=== PATIENT | male | born 1975 | race Caucasian/White ===

== ENCOUNTER 2016-05-05 16:34 | Emergency (ER) | payer SELFPAY ==
[~2016-05-05] VITALS: Ht 193 cm; Wt 83.6 kg
[~2016-05-05 16:34] MED LIST: BUSP-8 PO; SERT100T PO
[2016-05-05 16:42] VITALS: BP 122/81; PULSE 102; TEMP 37.5; O2SAT 97; Ht 193 cm; Wt 83.6 kg
[2016-05-05] MEDS ORDERED: XYLOCAINE 1%/SOD BICARB 20 ML VIAL INFIL ONE (17:30)
--- NOTE | 2016-05-05 17:35 | EMERGENCY ROOM VISIT NOTE ---
ED Visit Note First contact with patient: 17:15 CHIEF COMPLAINT: Finger laceration HISTORY OF PRESENT ILLNESS: This 40-year-old male patient presents to the emergency department ambulatory after cutting the right third finger on a knife just prior to arrival. He reports that he slipped and cut the finger on a knife that was open in his drawer. The bleeding has stopped. Denies weakness or numbness of the finger. The patient has full range of motion of the fingers. The patient rates the pain as dull and 7/10. The patient denies any other injuries. The patient's tetanus shot is up to date. REVIEW OF SYSTEMS: A 6 system review of systems was completed with positives and pertinent negatives listed in the HPI. ALLERGIES: No known drug allergies MEDICATIONS: Buspirone, Zoloft PMH: No significant past medical history. SOCIAL HISTORY: The patient lives locally with family. He is a smoker. PHYSICAL EXAM: Vital Signs: Reviewed Nurse's notes, vital signs stable. GENERAL : This is a 40-year-old male, in no acute distress, well developed, well nourished. SKIN: There is a 1 cm long laceration on the dorsal aspect of the right third finger. The edges gape apart with traction. There is no foreign material in the wound and it looks clean. There is minimal active bleeding. No deep structures such as tendons, bones, or significant blood vessels are seen in the base of the wound. Extension and flexion of the finger is full and strong. Full range of motion of the wrist and other fingers. Capillary refill less than 2 seconds. Normal sensation to light and sharp touch. EMERGENCY DEPARTMENT COURSE: I examined the patient. Verbal consent was obtained to perform the procedure. Using sterile technique the wound was cleansed with Betadine. 2 ml of 1% buffered lidocaine was used to anesthetize the laceration. The area was sterilely draped. Once the patient was anesthetized, the wound was copiously irrigated under pressure with sterile saline. The wound was explored and there were no deep structures injured. The laceration was repaired using 4 simple interrupted 5-0 nylon sutures. The patient tolerated the procedure well. Hemostasis was achieved. The area was cleaned with sterile saline and dressed with bacitracin ointment and bandage. The patient was discharged home in good condition. DIAGNOSIS: Finger laceration Current/Historical Medications Scheduled Ibuprofen Tab (Motrin), 800 MG PO DAILY Allergies Coded Allergies: No Known Allergies (Unverified , 06/23/15) Vital Signs Date Time Temp Pulse Resp B/P Pulse Ox O2 Delivery O2 Flow Rate FiO2 05/05/16 16:42 37.5 102 19 122/81 97 Room Air Departure Information Impression Primary Impression: Finger laceration Dispostion Home / Self-Care Condition GOOD Referrals Rhonda Leija PA-C (PCP) Mateus Montague MD Patient Instructions My [facility] Additional Instructions You have received 4 sutures on your finger. These sutures are NOT dissolvable and WILL need to be removed by a health care provider in 10-12 days. You can return to the Emergency Department or contact your Primary Care Provider to have the sutures removed. Proper wound care is essential for adequate wound healing and infection prevention. You can shower and clean the wound with soap and water. Do not scour over the wound, pat dry with a towel. Do not submerse the wound (i.e. bathe or dish wash) until the sutures have been removed. You can use an antibiotic ointment with a dressing over the wound for the next 3-4 days. After this time you may leave the wound dry and open to the air. If crust develops over the wound you can use a Q-tip to apply a 1:1 peroxide:water solution to clean the wound. Look for signs of infection of the wound including: increased pain, swelling, foul discharge, streaking, or increased temperature. If any of these are noticed you should return to the Emergency Department for further assessment and treatment. As with any laceration you may have received nerve damage to the surrounding tissues. This damage may or may not be permanent. You should keep the area covered with sunscreen for the first 6 months to 1 year when at risk for exposure to help minimize scarring. You can also use scar reducing creams or Vitamin E oil to help minimize scarring. For pain control, you can use the following [id number] medicines (if >12 yo): - Regular strength (325mg/tab) Tylenol (acetaminophen) 2 tabs every 4-6 hours as needed. Do not exceed 12 tablets in a 24 hour period. Avoid taking more than 4 grams (4000 mg) of Tylenol per day. This includes any other sources of acetaminophen you may take on a regular basis. - Regular strength (200 mg/tab) Advil (ibuprofen) 1-2 tabs every 4-6 hours as needed. Do not exceed a dose of 3200 mg per day. Follow-up with orthopedics if you have any persistent numbness or weakness of the finger after the sutures are removed. Return to the emergency department if your symptoms worsen despite treatment course outlined above. Problem Qualifiers Primary Impression: Finger laceration Encounter type: initial encounter Qualified Codes: S61.219A - Laceration without foreign body of unspecified finger without damage to nail, initial encounter
[2016-05-05] MEDS ORDERED: IBUP-1451 PO (17:37)
== END 2016-05-05 18:15 | disposition home or self-care (01) ==
LOC: C.EDB 16:36 → C.EDD 18:15
DX: S61.212A Laceration without foreign body of right middle finger without damage to nail, initial encounter (principal); W26.0XXA Contact with knife, initial encounter; Y92.010 Kitchen of single-family (private) house as the place of occurrence of the external cause; F17.210 Nicotine dependence, cigarettes, uncomplicated; Z79.899 Other long term (current) drug therapy

== ENCOUNTER 2016-12-06 12:44 | Emergency (ER) | payer OTHER ==
[~2016-12-06] VITALS: Ht 193 cm; Wt 99.1 kg
[~2016-12-06 12:44] MED LIST changes: -BUSP-8 PO; +IBUP-1451 PO; -SERT100T PO
[2016-12-06 12:45] VITALS: TEMP 36.9; Ht 193 cm; Wt 99.1 kg
[2016-12-06] MEDS ORDERED: SODIUM CHLORIDE 0.9% 1000ML 1,000 ML IV STA (12:55)
[2016-12-06] MEDS ORDERED: ALBUT/IPRATROP 3MG/0.5MG NEB 3 ML VIAL INH STA (12:55)
--- NOTE | 2016-12-06 13:04 | EMERGENCY ROOM VISIT NOTE ---
History Report prepared by Kianibalondra: Becka Sharp Under the Supervision of: Dr. Carrington Lee D.O. First contact with patient: 12:49 Chief Complaint: FLU LIKE SX Stated Complaint: SICK - FEVER - COUGHING UP MUCUS History of Present Illness The patient is a 41 year old male who presents to the Emergency Room with complaints of intermittent flu-like symptoms for the past few weeks. He complains of intermittent fevers, diaphoresis, a cough, "sharp" chest pain, shortness of breath and generalized body aches. His cough is productive with dark colored, "almost black mucous". The patient is a current 1/2 pack a day smoker. 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 The patient admits he was incarcerated for 5 days 2 years ago in a [facility] residential but denies any known tuberculosis exposures. He denies any abdominal pain , vomiting or diarrhea. He notes he is a recovering alcoholic and he last had a drink approximately 1 year ago. The patient states his Mother was recently diagnosed with lymphoma and he is concerned as he has noticed some swelling under his left arm. He denies any history of IV drug use. Source of History: patient Onset: past few weeks [employer]KE WORK[employer] Position: other (global) Timing: intermittent Associated Symptoms: + fevers, + diaphoresis, + cough, + chest pain, + SOB, + fatigue, No vomiting, No abdominal pain, No diarrhea Review of Systems See HPI for pertinent positives & negatives. A total of 10 systems reviewed and were otherwise negative. Past Medical & Surgical Medical Problems: (1) Depression Surgical Problems: (1) S/P ACL repair Social History Problems: (1) Smoker Family History Cancer Heart disease Lung disease Social History Smoking Status: Current Every Day Smoker Alcohol Use: other (history of ETOH abuse) Drug Use: none Marital Status: Housing Status: lives with family Occupation Status: employed Current/Historical Medications Scheduled Cephalexin Monohydrate (Keflex), 500 MG PO QID Ibuprofen (Advil), 400 MG PO DAILY Mirtazapine (Mirtazapine), 1 TAB PO HS Scheduled PRN Tramadol (Ultram), 50 MG PO DAILY PRN for Pain Allergies Coded Allergies: No Known Allergies (Unverified , 12/06/16) Physical Exam Vital Signs Date Time Temp Pulse Resp B/P (MAP) Pulse Ox O2 Delivery O2 Flow Rate FiO2 9/23/17 14:07 84 20 125/90 99 Room Air 12/06/16 12:45 36.9 103 20 132/78 98 Room Air Physical Exam GENERAL: Patient is awake, alert, in no acute distress, patient is resting comfortably and showing no signs of anxiety EYES: The conjunctivae are clear. The pupils are round and reactive. EARS, NOSE, MOUTH AND THROAT: The nose is without any evidence of any deformity. TM's clear bilaterally, Mucous membranes are dry, tongue is midline NECK: The neck is nontender and supple. RESPIRATORY: Lung sounds are diminished throughout with expiratory wheezing in all [place]. No tachypnea or conversational dyspnea CARDIOVASCULAR: Regular rate and rhythm noted there no murmurs rubs or gallops normal S1 normal S2 GASTROINTESTINAL: The abdomen is soft. Bowel sounds are present in all quadrants. Abdomen is nontender PELVIS: The Pelvis is stable. No tenderness to palpation is noted. BACK: No midline tenderness or or step-off noted range of motion in flexion extension as well as rotation no signs of muscle spasm noted MUSCULOSKELETAL/EXTREMITIES: There is no evidence of gross deformity full range of motion is noted in the hips and shoulders SKIN: Tender to palpation in the left axilla, questionable axillary adenopathy is appreciated. There is no obvious evidence of any rash. There are no petechiae , pallor or cyanosis noted. NEUROLOGIC: Patient is awake alert and oriented x3 Medical Decision & Procedures ER Provider Diagnostic Interpretation: Radiology results as stated below per my review and radiologist interpretation: CHEST 2 VIEWS ROUTINE HISTORY: EVALUATE RESPIRATORY DISTRESS.DYSPNEA COMPARISON: Chest 06/23/2015. FINDINGS: Mild chronic mucosal thickening, unchanged. No new focal lung consolidations to suggest pneumonia. No pleural effusions. No pneumothorax. The heart is normal in size. IMPRESSION: Stable mild chronic interstitial thickening. No acute process within the chest. Electronically signed by: Ramiro Dawson M.D. 12/06/2016 1:46 PM Laboratory Results 12/06/16 13:05 Red Blood Count 4.64, Mean Corpuscular Volume 90.7, Mean Corpuscular Hemoglobin 31.3, Mean Corpuscular Hemoglobin Concent 34.4, Mean Platelet Volume 9.9, Neutrophils (%) (Auto) 51.5, Lymphocytes (%) (Auto) 33.7, Monocytes (%) (Auto) 8.1, Eosinophils (%) (Auto) 5.8, Basophils (%) (Auto) 0.6, Neutrophils # (Auto) 3.74, Lymphocytes # (Auto) 2.44, Monocytes # (Auto) 0.59, Eosinophils # (Auto) 0.42, Basophils # (Auto) 0.04 12/06/16 13:05 Test 12/06/16 13:05 12/06/16 13:40 White Blood Count 7.25 K/uL (4.8-10.8) Red Blood Count 4.64 M/uL (4.7-6.1) Hemoglobin 14.5 g/dL (14.0-18.0) Hematocrit 42.1 % (42-52) Mean Corpuscular Volume 90.7 fL (80-100) Mean Corpuscular Hemoglobin 31.3 pg (25-34) Mean Corpuscular Hemoglobin Concent 34.4 g/dl (32-36) Platelet Count 230 K/uL (130-400) Mean Platelet Volume 9.9 fL (7.4-10.4) Neutrophils (%) (Auto) 51.5 % Lymphocytes (%) (Auto) 33.7 % Monocytes (%) (Auto) 8.1 % Eosinophils (%) (Auto) 5.8 % Basophils (%) (Auto) 0.6 % Neutrophils # (Auto) 3.74 K/uL (1.4-6.5) Lymphocytes # (Auto) 2.44 K/uL (1.2-3.4) Monocytes # (Auto) 0.59 K/uL (0.11-0.59) Eosinophils # (Auto) 0.42 K/uL (0-0.5) Basophils # (Auto) 0.04 K/uL (0-0.2) RDW Standard Deviation 45.4 fL (36.4-46.3) RDW Coefficient of Variation 13.8 % (11.5-14.5) Immature Granulocyte % (Auto) 0.3 % Immature Granulocyte # (Auto) 0.02 K/uL (0.00-0.02) Erythrocyte Sedimentation Rate 4 mm/hr (0-14) Anion Gap 6.0 mmol/L (3-11) Est Creatinine Clear Calc Drug Dose 129.9 ml/min Estimated GFR () 120.8 Estimated GFR (Non- 104.2 BUN/Creatinine Ratio 15.3 (10-20) Calcium Level 8.7 mg/dl (8.5-10.1) Total Bilirubin 0.3 mg/dl (0.2-1) Aspartate Amino Transf (AST/SGOT) 17 U/L (15-37) Alanine Aminotransferase (ALT/SGPT) 22 U/L (12-78) Alkaline Phosphatase 68 U/L (45-117) Troponin I < 0.015 ng/ml (0-0.045) C-Reactive Protein 1.31 mg/dl (0-0.29) Total Protein 6.8 gm/dl (6.4-8.2) Albumin 3.8 gm/dl (3.4-5.0) Globulin 3.0 gm/dl (2.5-4.0) Albumin/Globulin Ratio 1.3 (0.9-2) Urine Color DK YELLOW Urine Appearance CLEAR (CLEAR) Urine pH 5.0 (4.5-7.5) Urine Specific [place] 1.024 (1.000-1.030) Urine Protein NEG (NEG) Urine Glucose (UA) NEG (NEG) Urine Ketones NEG (NEG) Urine Occult Blood NEG (NEG) Urine Nitrite NEG (NEG) Urine Bilirubin NEG (NEG) Urine Urobilinogen NEG (NEG) Urine Leukocyte Esterase NEG (NEG) Laboratory results per my review. Medications Administered Medications (Trade) Dose Ordered Sig/Carmen Route Start Time Stop Time Status Last Admin Dose Admin Sodium Chloride 1,000 ml @ 999 mls/hr Q1H1M STAT IV 12/06/16 12:55 12/06/16 13:55 DC 12/06/16 13:06 999 MLS/HR Albuterol/ Ipratropium (Duoneb) 3 ml NOW STAT INH 12/06/16 12:55 12/06/16 12:56 DC 12/06/16 13:06 3 ML ECG Indication: chest pain Rate (beats per minute): 79 Rhythm: normal sinus Findings: no ectopy, other (No acute ST segments) Change: no significant change (No change from 06/23/2015) ED Course 1251: The patient was evaluated in room B6. A complete history and physical examination were performed. 1255: DuoNeb 3 ml INH, NSS 1000 ml @ 999 mls/hr IV. 1418: I reevaluated the patient. He is feeling well and resting comfortably. I discussed his results and discharge instructions and he verbalized complete understanding and agreement. Medical Decision Prior records/ancillary studies reviewed. Triage Nursing notes reviewed. The patient's history was concerning for respiratory difficulties. Differential diagnosis: Etiologies such as infections, reactive airway disease, pneumonia, pneumothorax , COPD, CHF, cardiac ischemia, pulmonary embolism, musculoskeletal, gastrointestinal, as well as others were entertained. The patient is a 41-year-old male who presented to the emergency department for evaluation of cough as well as swelling in his left axilla. The patient has a family member who has lymphoma and was concerned he may have some sort of blood borne problem. The patient did not have a fever in the emergency department. His chest x-ray was not consistent with pneumonia. On physical exam did have some wheezing but he does smoke. He also had some palpable fullness in his left axilla which could be consistent with adenopathy. I recommended a course of antibiotics for this. I discussed the patient's laboratory radiographic studies with him. He was also given follow-up information for the on-call general surgeon to discuss the possibility that this may require biopsy in someway to determine the cause. He was also encouraged to follow-up with his primary care physician soon as possible return to emergency department immediately if symptoms worsen or the need arises. I also stressed stop smoking. Medication Reconcilliation Current Medication List: was personally reviewed by me Blood Pressure Screening Patient's blood pressure: Normal blood pressure Blood pressure disposition: Did not require urgent referral Impression Primary Impression: Axillary adenopathy Additional Impressions: Weakness Cough Scribe Attestation The scribe's documentation has been prepared under my direction and personally reviewed by me in its entirety. I confirm that the note above accurately reflects all work, treatment, procedures, and medical decision making performed by me. Departure Information Dispostion Home / Self-Care Prescriptions Cephalexin Monohydrate (KEFLEX) 500 Mg Cap 500 MG PO QID, #40 CAP Prov: Carrington Lee, DO 12/06/16 Referrals No Doctor, Assigned (PCP) Patient Instructions ED Smoking Cessation, Lymphadenopathy, My [facility] Additional Instructions Continue all medications as prescribed. Continue using Motrin and Tylenol for mild pain. Follow-up with your primary care physician phlebotomist lab assistant as possible. Call the general surgeon to discuss the possibility that you may need the lymph nodes in your left arm removed or biopsied if it does not respond and treatment. Problem Qualifiers
[2016-12-06] MEDS ORDERED: TRAM-10 PO (13:11)
[2016-12-06] MEDS ORDERED: IBUP-1050 PO (13:11)
[2016-12-06] MEDS ORDERED: MIRT45TA3 PO (13:11)
[2016-12-06 13:16] LABS: BASO % 0.6 %; BASO ABS # 0.04 K/uL (0-0.2); COMPLETE YES; EOS % 5.8 %; HEMATOCRIT 42.1 % (42-52); IG% 0.3 %; LYMPH % 33.7 %; LYMPH ABS # 2.44 K/uL (1.2-3.4); MEAN CELL VOLUME 90.7 fL (80-100); MEAN CORPUSCULAR HEMOGLOBIN 31.3 pg (25-34); MEAN CORPUSCULAR HGB CONC 34.4 g/dl (32-36); MEAN PLATELET VOLUME 9.9 fL (7.4-10.4); MONO % 8.1 %; NEUT % 51.5 %; PLATELET COUNT 230 K/uL (130-400); RED BLOOD COUNT 4.64 M/uL (4.7-6.1); WHITE BLOOD COUNT 7.25 K/uL (4.8-10.8)
[2016-12-06 13:36] LABS: ALT/SGPT 22 U/L (12-78); BLOOD UREA NITROGEN 14 mg/dl (7-18); BUN/CREATININE RATIO 15.3 (10-20); C-REACTIVE PROTEIN 1.31 mg/dl (0-0.29); CALCIUM 8.7 mg/dl (8.5-10.1); CARBON DIOXIDE 26 mmol/L (21-32); CHLORIDE 108 mmol/L (98-107); GLUCOSE 72 mg/dl (70-99); POTASSIUM 3.7 mmol/L (3.5-5.1); SODIUM 140 mmol/L (136-145)
[2016-12-06 13:41] LABS: ALB/GLOB RATIO 1.3 (0.9-2); ALKALINE PHOSPHATASE 68 U/L (45-117); AST/SGOT 17 U/L (15-37)
--- NOTE | 2016-12-06 13:48 | DIAGNOSTIC IMAGING REPORT ---
CHEST 2 VIEWS ROUTINE HISTORY: EVALUATE RESPIRATORY DISTRESS.DYSPNEA COMPARISON: Chest 06/23/2015. FINDINGS: Mild chronic mucosal thickening, unchanged. No new focal lung consolidations to suggest pneumonia. No pleural effusions. No pneumothorax. The heart is normal in size. IMPRESSION: Stable mild chronic interstitial thickening. No acute process within the chest. Electronically signed by: Ramiro Dawson M.D. 12/06/2016 1:46 PM Dictated Date/Time: 12/06/2016 1:45 PM
[2016-12-06 14:02] LABS: MANUAL MICROSCOPIC REQUIRED? NO; REVIEW REQ? NO; URINE APPEARANCE CLEAR (CLEAR); URINE BILIRUBIN NEG (NEG); URINE COLOR DK YELLOW; URINE NITRITE NEG (NEG); URINE SPECIFIC GRAVITY 1.024 (1.000-1.030); UROBILINOGEN NEG (NEG)
[2016-12-06 14:07] VITALS: BP 125/90; PULSE 84; O2SAT 99
[2016-12-06] MEDS ORDERED: CEPH500C2 PO (14:15)
== END 2016-12-06 14:29 | disposition home or self-care (01) ==
LOC: C.EDB 12:45
DX: R59.9 Enlarged lymph nodes, unspecified (principal); R05 Cough; R53.1 Weakness; F32.9 Major depressive disorder, single episode, unspecified; F17.200 Nicotine dependence, unspecified, uncomplicated; Z98.890 Other specified postprocedural states; Z80.9 Family history of malignant neoplasm, unspecified; Z82.49 Family history of ischemic heart disease and other diseases of the circulatory system

== ENCOUNTER → 2017-06-26 | Outpatient (CLI) | payer OTHER ==
[~2017-06-26] MED LIST changes: +IBUP-1050 PO; -IBUP-1451 PO; +MIRT45TA3 PO; +TRAM-10 PO
[2017-06-26 12:19] LABS: BASO % 1.2 %; BASO ABS # 0.07 K/uL (0-0.2); EOS % 5.1 %; EOS ABS # 0.29 K/uL (0-0.5); HEMATOCRIT 42.3 % (42-52); HEMOGLOBIN 14.8 g/dL (14.0-18.0); LYMPH % 25.3 %; LYMPH ABS # 1.43 K/uL (1.2-3.4); MEAN CELL VOLUME 89.8 fL (80-100); MEAN CORPUSCULAR HEMOGLOBIN 31.4 pg (25-34); MEAN PLATELET VOLUME 10.3 fL (7.4-10.4); MONO % 8.1 %; MONO ABS # 0.46 K/uL (0.11-0.59); NEUT % 60.3 %; PLATELET COUNT 214 K/uL (130-400); RED CELL DISTRIBUTION WIDTH CV 13.7 % (11.5-14.5); RED CELL DISTRIBUTION WIDTH SD 45.5 fL (36.4-46.3); WHITE BLOOD COUNT 5.65 K/uL (4.8-10.8)
[2017-06-26 12:48] LABS: HEMOGLOBIN A1C 5.6 % (4.5-5.6)
[2017-06-26 12:53] LABS: ALT/SGPT 18 U/L (12-78); AST/SGOT 16 U/L (15-37); BLOOD UREA NITROGEN 14 mg/dl (7-18); CALCIUM 8.9 mg/dl (8.5-10.1); CARBON DIOXIDE 29 mmol/L (21-32); GLUCOSE 98 mg/dl (70-99); POTASSIUM 3.8 mmol/L (3.5-5.1); SODIUM 137 mmol/L (136-145)
[2017-06-26 13:02] LABS: ALKALINE PHOSPHATASE 79 U/L (45-117); CHOLESTEROL 139 mg/dl (0-200); LDL CHOLESTEROL CALCULATED 89 mg/dl
== END | disposition home or self-care (01) ==
LOC: C.LAB 11:35
PROVIDERS: ATTEND Physician Assistant
DX: Z79.899 Other long term (current) drug therapy (principal)

== ENCOUNTER 2021-04-09 15:00 | Inpatient (IN) ==
[2021-04-09 16:14] LABS: Basophils # (auto) 0.05 K/uL (0-0.2); Basophils % (auto) 0.6 %; Eosinophils # (auto) 0.23 K/uL (0-0.5); Eosinophils % (auto) 2.8 %; Hematocrit (blood only) 39.9 % (42-52); Hemoglobin 13.6 g/dL (14.0-18.0); Immature Granulocytes # (auto) 0.02 K/uL (0.00-0.02); Immature Granulocytes % (auto) 0.2 %; Lymphocytes # (auto) 2.02 K/uL (1.2-3.4); Lymphocytes % (auto) 24.3 %; Mean Corpuscular Hemoglobin 31.3 pg (25-34); Mean Corpuscular Hgb Conc 34.1 g/dL (32-36); Mean Corpuscular Volume 91.7 fL (80-100); Mean Platelet Volume 10.4 fL (7.4-10.4); Monocytes # (auto) 0.45 K/uL (0.11-0.59); Monocytes % (auto) 5.4 %; Neutrophils # (auto) 5.55 K/uL (1.4-6.5); Neutrophils % (auto) 66.7 %; Platelet Count 300 K/uL (130-400); RDW Coefficient of Variation 14.2 % (11.5-14.5); RDW Standard Deviation 48.3 fL (36.4-46.3); Red Blood Count 4.35 M/uL (4.7-6.1); White Blood Count 8.32 K/uL (4.8-10.8)
[2021-04-09] MEDS ORDERED: LORazepam 1 MG TAB PO STA ×2 (16:19→19:27)
[2021-04-09] MEDS ORDERED: busPIRone 15 MG TAB PO SCH (16:30)
--- NOTE | 2021-04-09 16:37 | Emergency Department Note ---
History of Present Illness General Chief complaint: Rectal Pain Stated complaint: PROSTATE INFECTION, PAIN, MED WITHDRAWAL Time Seen by Provider: 04/09/21 16:03 History of Present Illness Provider complaint: Anxiety Onset (ago): day(s) 3 Maximum Pain Intensity: 5 Associated symptoms: no chest pain, no cough, no fever/chills, no headaches, no malaise, no nausea/vomiting or no shortness of breath 45-year-old male presents emergency department for anxiety. Patient's reports that 2 to 3 days ago he took kratom and stopped taking all of his psychiatric medications. He states he stopped taking all of his psychiatric medications because he thought that he was having his psychiatric medications interact with the doxycycline that he was put on for prostatitis/epididymitis. Patient states he was diagnosed with prostatitis/epididymitis by his urologist. Patient states he also took an edible last night. He states since stopping all of his psychiatric medications taken the kratom he has been having difficulty sleeping and difficulty eating. He states he thinks he is going through withdrawals. He denies any chest pain difficulty breathing headache abdominal pain. He states his testicular pain is better. Home Medications Medication Instructions Recorded Confirmed Type hydroxyzine HCl 25 mg tablet 25 mg PO TID 08/12/19 04/09/21 History oxcarbazepine 300 mg tablet 300 mg PO BID 08/12/19 04/09/21 History lorazepam 1 mg tablet (Ativan) 1 mg PO TID 08/27/20 04/09/21 History buspirone 15 mg tablet 15 mg PO TID 03/31/21 04/09/21 History dextroamphetamine-amphetamine ER 15 mg PO QDL 03/31/21 04/09/21 History 15 mg 24hr capsule,extend release dextroamphetamine-amphetamine ER 30 mg PO QAM 03/31/21 04/09/21 History 30 mg 24hr capsule,extend release lumateperone 42 mg capsule 42 mg PO QAM 03/31/21 04/09/21 History (Caplyta) mirtazapine 30 mg tablet 60 mg PO HS 03/31/21 04/09/21 History olanzapine 5 mg tablet (Zyprexa) 5 mg PO QAM 03/31/21 04/09/21 History oxcarbazepine 150 mg tablet 150 mg PO BID 03/31/21 04/09/21 History prazosin 1 mg capsule 1 mg PO HS 03/31/21 04/09/21 History tramadol 50 mg tablet 50 mg PO Q6H PRN 03/31/21 04/09/21 History doxycycline hyclate 100 mg capsule 100 mg PO BID 04/09/21 04/09/21 History meloxicam 7.5 mg tablet 7.5 mg PO DAILY 04/09/21 04/09/21 History tamsulosin 0.4 mg capsule 0.4 mg PO DAILY 04/09/21 04/09/21 History Allergies Allergy/AdvReac Type Severity Reaction Status Date / Time No Known Allergies Allergy Verified 04/09/21 17:21 Past Med/Surg History Medical History Bipolar disease, chronic C. difficile diarrhea Depression Encounter for biopsy left armpit mass benign Epididymitis Prostatitis Rheumatoid arthritis Schizophrenia Skull fracture repaired surgically Smoker Surgical History H/O knee surgery Family History Other No pertinent family history in first degree relatives Social History Smoking Status: Current every day smoker Tobacco Type: Cigarettes Hx Alcohol Use: No Hx Substance Use: No Preferred Language: Lithuanian Beliefs That Will Affect Care: None Current Living Situation: Parent current occupational status: employed current occupation: [employer] Safe at Home: Yes Assistive Devices: None Review of Systems A total of 10 systems reviewed and were otherwise negative Physical Exam Vital Signs Vital Signs - 24 hr 04/09/21 15:04 04/09/21 16:38 04/09/21 19:00 Temperature 36.5 C Temperature Source Temporal Artery Scan Pulse Rate 93 H Pulse Rate [Apical] 88 Pulse Rate [Right Finger] 89 Pulse Rhythm [Right Finger] Regular Pulse Strength [Right Finger] Normal Respiratory Rate 18 20 16 Respiratory Effort / Characteristics Non-Labored Spontaneous Respiratory Depth Normal Blood Pressure 143/89 H Blood Pressure [Right Arm] 141/91 H 143/103 H Blood Pressure Mean 107 Blood Pressure Mean [Right Arm] 107 116 Blood Pressure Position Sitting Blood Pressure Position [Right Arm] Pulse Oximetry 100 98 95 Oxygen Delivery Method Room Air Room Air Room Air Sepsis Recent Fever Within 48 Hours No Sepsis New/Unexplained Change in Mental Status No Sepsis Action Taken by Nursing No Action Required 04/09/21 21:30 Temperature Temperature Source Pulse Rate Pulse Rate [Apical] Pulse Rate [Right Finger] 114 H Pulse Rhythm [Right Finger] Regular Pulse Strength [Right Finger] Normal Respiratory Rate 22 Respiratory Effort / Characteristics Non-Labored Spontaneous Respiratory Depth Normal Blood Pressure Blood Pressure [Right Arm] 140/97 Blood Pressure Mean Blood Pressure Mean [Right Arm] 111 Blood Pressure Position Blood Pressure Position [Right Arm] Sitting Pulse Oximetry 98 Oxygen Delivery Method Room Air Sepsis Recent Fever Within 48 Hours Sepsis New/Unexplained Change in Mental Status Sepsis Action Taken by Nursing Physical Exam HENT: Exam performed. - Head: Normocephalic and atraumatic. - Right Ear: External ear normal. No mastoid tenderness. - Left Ear: External ear normal. No mastoid tenderness. - Mouth/Throat: The oropharynx is clear and moist. No trismus in the jaw. No dental abscesses or uvula swelling. No oropharyngeal exudate or tonsillar abscesses. EYES: Conjunctivae and EOM are normal. Pupils are equal, round, and reactive to light. Right eye exhibits no discharge. Left eye exhibits no discharge. No scleral icterus. NECK: Normal range of motion. Neck supple. No JVD present. No spinous process tenderness present. No carotid bruit present. No rigidity. No tracheal deviation and normal range of motion present. No Brudzinski's sign and no Kernig's sign noted. CV: Normal rate, regular rhythm, normal heart sounds and intact distal pulses. There is no peripheral edema. Palpable radial pulses bue. PULM/CHEST: Effort normal and breath sounds normal. No respiratory distress. No stridor. He has no wheezes. He has no rales. - Chest Wall: He exhibits no tenderness. ABD: The abdomen is soft. Bowel sounds are normal. He has no distension. No mass is present. There is no tenderness. There is no rebound, no guarding, no Hall's sign and no tenderness at McBurney's point. Rovsig negative. MUSC/SKEL: Normal range of motion. There is no peripheral edema, tenderness or deformity. LYMPH: No cervical adenopathy. NEURO: He is alert and oriented to person, place, and time. He has normal strength. No cranial nerve deficit or sensory deficit. Coordination and gait normal. GCS eye subscore is 4. GCS verbal subscore is 5. GCS motor subscore is 6. Cerebellar tests wnl. SKIN: Skin is warm and dry. He is not diaphoretic. PSYCH: Patient appears very anxious and tearful. Patient denies any suicidal or homicidal ideation. Course Course 1603: The patient was evaluated in room B5. A complete history and physical exam was performed. Patient was seen with case briefer sung at bedside Cardiac monitoring: An order was placed for continuous cardiac monitoring. The monitor shows a rate of 90 with sinus rhythm3 1920: Vital signs stable. Patient medically cleared. Patient advised by psychiatric case briefer. Patient states he is about to go manic would like inpatient treatment. Awaiting psychiatric placement. Patient placed in ob servation at this time. 2310: Patient evaluated by 3 S. and admitted to 3 S. Administered Medications Buspirone HCl (Buspirone 15 Mg Tab) 15 mg PO [facility] Stop: 05/09/21 16:29 Last Admin: 04/09/21 18:44 Dose: 15 mg Documented by: [id number] Nicotine (Nicotine 14 Mg/24 Hr Patch) 14 mg TD [facility] Stop: 05/09/21 19:29 Last Admin: 04/09/21 19:48 Dose: 14 mg Documented by: [id number] Discontinued Medications Al Hydrox/Mg Hydrox/Simethicone (Gi Cocktail Ed Use) 1 dose PO ONE ONE Stop: 04/09/21 19:27 Last Admin: 04/09/21 19:48 Dose: 1 dose Documented by: [id number] Lorazepam (Lorazepam 1 Mg Tab) 2 mg PO NOW STA Stop: 04/09/21 16:20 Last Admin: 04/09/21 16:33 Dose: 2 mg Documented by: [id number] Lorazepam (Lorazepam 1 Mg Tab) 1 mg PO NOW STA Stop: 04/09/21 19:28 Last Admin: 04/09/21 19:49 Dose: 1 mg Documented by: [id number] Naproxen (Naproxen 250 Mg Tab) 250 mg PO NOW STA Stop: 04/09/21 19:27 Last Admin: 04/09/21 19:48 Dose: 250 mg Documented by: [id number] Oxcarbazepine (Oxcarbazepine 150 Mg Tablet) 450 mg PO NOW STA Stop: 04/09/21 19:23 Last Admin: 04/09/21 20:27 Dose: 450 mg Documented by: [id number] Medical Decision Making Laboratory Data Result diagrams: 04/09/21 15:47 04/09/21 15:47 Lab Results 04/09/21 04/09/21 04/09/21 Range/Units 15:47 15:47 15:47 WBC 8.32 (4.8-10.8) K/uL RBC 4.35 L (4.7-6.1) M/uL Hgb 13.6 L (14.0-18.0) g/dL Hct 39.9 L (42-52) % MCV 91.7 (80-100) fL MCH 31.3 (25-34) pg MCHC 34.1 (32-36) g/dL RDW Std Deviation 48.3 H (36.4-46.3) fL RDW Coeff of Lenny 14.2 (11.5-14.5) % Plt Count 300 (130-400) K/uL MPV 10.4 (7.4-10.4) fL Immature Gran % (Auto) 0.2 % Neut % (Auto) 66.7 % Lymph % (Auto) 24.3 % Grant % (Auto) 5.4 % Eos % (Auto) 2.8 % Baso % (Auto) 0.6 % Neut # (Auto) 5.55 (1.4-6.5) K/uL Lymph # (Auto) 2.02 (1.2-3.4) K/uL Grant # (Auto) 0.45 (0.11-0.59) K/uL Eos # (Auto) 0.23 (0-0.5) K/uL Baso # (Auto) 0.05 (0-0.2) K/uL Immature Gran # (Auto) 0.02 (0.00-0.02) K/uL Sodium 140 (136-145) mmol/L Potassium 3.8 (3.5-5.1) mmol/L Chloride 109 H (98-107) mmol/L Carbon Dioxide 24 (21-32) mmol/L Anion Gap 7 (3-11) BUN 11 (6-23) mg/dl Creatinine 0.90 (0.6-1.4) mg/dl Est Cr Clr Drug Dosing 127.8 ml/min Est GFR ( Amer) 117.5 ml/min Est GFR (Non-Af Amer) 101.4 ml/min BUN/Creatinine Ratio 12.2 (10-20) Glucose 101 H (70-99(Fasting)) mg/dl Calcium 9.6 (8.5-10.1) mg/dl Total Bilirubin 0.4 (0.2-1.0) mg/dl AST 22 (13-39) U/L ALT 27 (7-52) U/L Alkaline Phosphatase 65 (34-104) U/L Total Protein 6.6 (6.0-8.3) gm/dl Albumin 4.1 (3.4-5.0) gm/dl Globulin 2.5 (2.5-4.0) gm/dl Albumin/Globulin Ratio 1.6 (0.9-2) TSH 2.139 (0.300-4.500) uIu/ml Urine Color Urine Appearance (Clear) Urine pH (4.5-7.5) Ur Specific [place] (1.000-1.030) Urine Protein (Negative) Urine Glucose (UA) (Negative) Urine Ketones (Negative) Urine Blood (Negative) Urine Nitrite (Negative) Urine Bilirubin (Negative) Urine Urobilinogen (Negative) Ur Leukocyte Esterase (Negative) Salicylates (3.0-30) mg/dl Urine Opiates Screen (Neg) Ur Methadone, Qual (Neg) Acetaminophen (10-30) ug/ml Urine Barbiturates (Neg) Ur Phencyclidine (PCP) (Neg) U Amphetamin/Meth Scrn (Neg) MDMA (Ecstasy) Screen (Neg) U Benzodiazepines Scrn (Neg) Ur Cocaine Metabolite (Neg) U Marijuana (THC) Screen (Neg) Ethyl Alcohol mg/dL (<10.0) mg/dl SARS-CoV-2, RNA, NAAT (NEGATIVE) 04/09/21 04/09/21 04/09/21 Range/Units 15:47 15:47 17:12 WBC (4.8-10.8) K/uL RBC (4.7-6.1) M/uL Hgb (14.0-18.0) g/dL Hct (42-52) % MCV (80-100) fL MCH (25-34) pg MCHC (32-36) g/dL RDW Std Deviation (36.4-46.3) fL RDW Coeff of Elnny (11.5-14.5) % Plt Count (130-400) K/uL MPV (7.4-10.4) fL Immature Gran % (Auto) % Neut % (Auto) % Lymph % (Auto) % Grant % (Auto) % Eos % (Auto) % Baso % (Auto) % Neut # (Auto) (1.4-6.5) K/uL Lymph # (Auto) (1.2-3.4) K/uL Grant # (Auto) (0.11-0.59) K/uL Eos # (Auto) (0-0.5) K/uL Baso # (Auto) (0-0.2) K/uL Immature Gran # (Auto) (0.00-0.02) K/uL Sodium (136-145) mmol/L Potassium (3.5-5.1) mmol/L Chloride (98-107) mmol/L Carbon Dioxide (21-32) mmol/L Anion Gap (3-11) BUN (6-23) mg/dl Creatinine (0.6-1.4) mg/dl Est Cr Clr Drug Dosing ml/min Est GFR ( Amer) ml/min Est GFR (Non-Af Amer) ml/min BUN/Creatinine Ratio (10-20) Glucose (70-99(Fasting)) mg/dl Calcium (8.5-10.1) mg/dl Total Bilirubin (0.2-1.0) mg/dl AST (13-39) U/L ALT (7-52) U/L Alkaline Phosphatase (34-104) U/L Total Protein (6.0-8.3) gm/dl Albumin (3.4-5.0) gm/dl Globulin (2.5-4.0) gm/dl Albumin/Globulin Ratio (0.9-2) TSH (0.300-4.500) uIu/ml Urine Color Yellow Urine Appearance Clear (Clear) Urine pH 6.5 (4.5-7.5) Ur Specific [place] 1.004 (1.000-1.030) Urine Protein Negative (Negative) Urine Glucose (UA) Negative (Negative) Urine Ketones Negative (Negative) Urine Blood Negative (Negative) Urine Nitrite Negative (Negative) Urine Bilirubin Negative (Negative) Urine Urobilinogen Negative (Negative) Ur Leukocyte Esterase Negative (Negative) Salicylates < 3.0 L (3.0-30) mg/dl Urine Opiates Screen (Neg) Ur Methadone, Qual (Neg) Acetaminophen < 3 L (10-30) ug/ml Urine Barbiturates (Neg) Ur Phencyclidine (PCP) (Neg) U Amphetamin/Meth Scrn (Neg) MDMA (Ecstasy) Screen (Neg) U Benzodiazepines Scrn (Neg) Ur Cocaine Metabolite (Neg) U Marijuana (THC) Screen (Neg) Ethyl Alcohol mg/dL < 10.0 (<10.0) mg/dl SARS-CoV-2, RNA, NAAT (NEGATIVE) 04/09/21 04/09/21 Range/Units 17:12 21:30 WBC (4.8-10.8) K/uL RBC (4.7-6.1) M/uL Hgb (14.0-18.0) g/dL Hct (42-52) % MCV (80-100) fL MCH (25-34) pg MCHC (32-36) g/dL RDW Std Deviation (36.4-46.3) fL RDW Coeff of Lenny (11.5-14.5) % Plt Count (130-400) K/uL MPV (7.4-10.4) fL Immature Gran % (Auto) % Neut % (Auto) % Lymph % (Auto) % Grant % (Auto) % Eos % (Auto) % Baso % (Auto) % Neut # (Auto) (1.4-6.5) K/uL Lymph # (Auto) (1.2-3.4) K/uL Grant # (Auto) (0.11-0.59) K/uL Eos # (Auto) (0-0.5) K/uL Baso # (Auto) (0-0.2) K/uL Immature Gran # (Auto) (0.00-0.02) K/uL Sodium (136-145) mmol/L Potassium (3.5-5.1) mmol/L Chloride (98-107) mmol/L Carbon Dioxide (21-32) mmol/L Anion Gap (3-11) BUN (6-23) mg/dl Creatinine (0.6-1.4) mg/dl Est Cr Clr Drug Dosing ml/min Est GFR ( Amer) ml/min Est GFR (Non-Af Amer) ml/min BUN/Creatinine Ratio (10-20) Glucose (70-99(Fasting)) mg/dl Calcium (8.5-10.1) mg/dl Total Bilirubin (0.2-1.0) mg/dl AST (13-39) U/L ALT (7-52) U/L Alkaline Phosphatase (34-104) U/L Total Protein (6.0-8.3) gm/dl Albumin (3.4-5.0) gm/dl Globulin (2.5-4.0) gm/dl Albumin/Globulin Ratio (0.9-2) TSH (0.300-4.500) uIu/ml Urine Color Urine Appearance (Clear) Urine pH (4.5-7.5) Ur Specific [place] (1.000-1.030) Urine Protein (Negative) Urine Glucose (UA) (Negative) Urine Ketones (Negative) Urine Blood (Negative) Urine Nitrite (Negative) Urine Bilirubin (Negative) Urine Urobilinogen (Negative) Ur Leukocyte Esterase (Negative) Salicylates (3.0-30) mg/dl Urine Opiates Screen Neg (Neg) Ur Methadone, Qual Neg (Neg) Acetaminophen (10-30) ug/ml Urine Barbiturates Neg (Neg) Ur Phencyclidine (PCP) Neg (Neg) U Amphetamin/Meth Scrn Pos H (Neg) MDMA (Ecstasy) Screen Neg (Neg) U Benzodiazepines Scrn Neg (Neg) Ur Cocaine Metabolite Neg (Neg) U Marijuana (THC) Screen Pos H (Neg) Ethyl Alcohol mg/dL (<10.0) mg/dl SARS-CoV-2, RNA, NAAT NEGATIVE (NEGATIVE) MDM Narrative Observation note Indication: Psych eval/placement Patient, with schizophrenia, bipolar disorder, epididymitis/prostatitis was first seen at 1603 hrs and the observation time began at 1920 hrs and was necessary in order to have psych evaluation completed . Upon re-evaluation, 3 hours and 50 minutes of observation revealed that the patient should be admitted to 3 . Disposition date and time April 09, 2021 2350 Impression & Plan Lesly Discharge Plan Visit Data Chief Complaint: Rectal Pain Stated Complaint: PROSTATE INFECTION, PAIN, MED WITHDRAWAL Discharge Problem: Lesly Patient Disposition: Admitted As Inpatient Forms Stand Alone Forms: [facility], Suicide Prevention Resources Prescriptions Prescriptions: No Action oxcarbazepine 300 mg tablet 300 mg PO BID RF: 0 hydroxyzine HCl 25 mg tablet 25 mg PO TID RF: 0 oxcarbazepine 150 mg tablet 150 mg PO BID RF: 0 prazosin 1 mg capsule 1 mg PO HS RF: 0 olanzapine [Zyprexa] 5 mg Tablet 5 mg PO QAM RF: 0 mirtazapine 30 mg tablet 60 mg PO HS RF: 0 dextroamphetamine-amphetamine 30 mg capsule,extended release 24hr 30 mg PO QAM RF: 0 buspirone 15 mg tablet 15 mg PO TID RF: 0 dextroamphetamine-amphetamine 15 mg capsule,extended release 24hr 15 mg PO QDL RF: 0 Caplyta 42 mg capsule 42 mg PO QAM RF: 0 tramadol 50 mg Tablet 50 mg PO Q6H PRN (Reason: Pain) RF: 0 lorazepam [Ativan] 1 mg Tablet 1 mg PO TID RF: 0 doxycycline hyclate 100 mg capsule 100 mg PO BID RF: 0 meloxicam 7.5 mg tablet 7.5 mg PO DAILY RF: 0 tamsulosin 0.4 mg capsule 0.4 mg PO DAILY RF: 0 Referrals Referrals: PCP,NO [Primary Care Provider] -
[2021-04-09 16:41] LABS: Albumin Globulin Ratio 1.6 (0.9-2); Albumin Level 4.1 gm/dl (3.4-5.0); BUN Creatinine Ratio 12.2 (10-20); Bilirubin,Total 0.4 mg/dl (0.2-1.0); Calcium 9.6 mg/dl (8.5-10.1); Creatinine Clr Calc Pharmacy 127.8 ml/min; Est GFR (African American) 117.5 ml/min; Est GFR (Non-African American) 101.4 ml/min; Globulin 2.5 gm/dl (2.5-4.0); Potassium 3.8 mmol/L (3.5-5.1); Total Protein 6.6 gm/dl (6.0-8.3)
[2021-04-09 16:46] LABS: Acetaminophen < 3 ug/ml (10-30); Salicylate < 3.0 mg/dl (3.0-30)
[2021-04-09 17:38] LABS: Appearance Urine Clear (Clear); Bilirubin Urine Negative (Negative); Blood Urine Negative (Negative); Color Urine Yellow; Glucose Urine UA Negative (Negative); Ketones Urine Negative (Negative); Leukocyte Esterase Urine Negative (Negative); Nitrite Urine Negative (Negative); Protein Urine Negative (Negative); Specific Gravity Urine 1.004 (1.000-1.030); Urobilinogen Urine Negative (Negative); pH Urine 6.5 (4.5-7.5)
[2021-04-09 18:37] LABS: Amphetamines+Metham, Urine Pos (Neg); Barbiturates, Urine Neg (Neg); Benzodiazepine, Urine Neg (Neg); Cocaine, Urine Neg (Neg); MDMA (Ecstacy), Urine Neg (Neg); Methadone, Urine Neg (Neg); Opiate, Urine Neg (Neg); Phencyclidine, Urine Neg (Neg)
[2021-04-09] MEDS ORDERED: OXcarbazepine 150 MG TABLET PO STA (19:22)
[2021-04-09] MEDS ORDERED: NAPROXEN 250 MG TAB PO STA (19:26)
[2021-04-09] MEDS ORDERED: GI COCKTAIL ED USE PO ONE (19:26)
[2021-04-09] MEDS ORDERED: NICOTINE 14 MG/24 HR PATCH TD SCH (19:30)
[2021-04-09] MEDS ORDERED: BISMUTH SUBSALICYLATE LIQD 236 ML PO PRN (22:52)
[2021-04-09] MEDS ORDERED: SODIUM CHLORIDE 0.65% NA SOLN 45 ML (OCEAN) PRN (22:52)
[2021-04-09] MEDS ORDERED: hydrOXYzine HCl 25 MG TAB PO PRN ×2 (22:52)
[2021-04-09] MEDS ORDERED: MAGNESIUM HYDROXIDE SUSP 30 ML UDC PO PRN (22:52)
[2021-04-09] MEDS ORDERED: OLANZapine 10 MG TAB PO STA (23:32)
[2021-04-09] MEDS ORDERED: LORazepam 1 MG TAB PO PRN (23:46)
[2021-04-10] MEDS: DOXYCYCLINE HYCLATE 100 MG CAP PO SCH ×3 (00:23→20:22)
[2021-04-10] MEDS: hydrOXYzine HCl 25 MG TAB PO SCH ×3 (09:35→20:22)
[2021-04-10] MEDS: NICOTINE 21 MG/24 HR TDSY TD SCH (09:38)
[2021-04-10] MEDS: ACETAMINOPHEN 325 MG TAB PO PRN ×2 (11:30→20:23)
[2021-04-10] MEDS: ALUMINUM/MAGNESIUM SUSP 30 ML UDC PO PRN ×2 (11:31→17:33)
[2021-04-10] MEDS: TAMSULOSIN HCL 0.4 MG CAP PO SCH (11:44)
[2021-04-10] MEDS: NICOTINE POLACRILEX 2 MG GUM MT PRN ×3 (11:51→18:07)
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
[2021-04-10] MEDS ORDERED: LORazepam 1 MG TAB PO SCH ×2 (15:25→21:00)
[2021-04-10] MEDS ORDERED: LOPERAMIDE HCL 2 MG CAP PO PRN (16:16)
[2021-04-10] MEDS: IBUPROFEN 600 MG TAB PO PRN (17:33)
[2021-04-10] MEDS: DICYCLOMINE HCL 20 MG TAB PO PRN (18:06)
[2021-04-10] MEDS: DIVALPROEX EXTENDED RELEASE 250 MG TABCR PO SCH (20:22)
[2021-04-10] MEDS: LORazepam 1 MG TAB PO SCH (20:23)
[2021-04-10] MEDS ORDERED: hydrOXYzine HCl 25 MG TAB PO SCH (21:00)
[2021-04-10] MEDS ORDERED: ATIVAN 1MG HOMEPACK PO SCH (21:00)
[2021-04-11] MEDS: DOXYCYCLINE HYCLATE 100 MG CAP PO SCH ×2 (08:51→20:21)
[2021-04-11] MEDS: ESCITALOPRAM OXALATE 10 MG TAB PO SCH (08:51)
[2021-04-11] MEDS: TAMSULOSIN HCL 0.4 MG CAP PO SCH (08:52)
[2021-04-11] MEDS: LORazepam 1 MG TAB PO SCH ×3 (08:52→17:15)
[2021-04-11] MEDS: MELOXICAM 7.5 MG TAB PO SCH (08:52)
[2021-04-11] MEDS: NICOTINE 21 MG/24 HR TDSY TD SCH (08:52)
[2021-04-11] MEDS: hydrOXYzine HCl 25 MG TAB PO SCH ×3 (08:53→20:20)
[2021-04-11] MEDS: NICOTINE POLACRILEX 2 MG GUM MT PRN ×4 (09:15→20:37)
[2021-04-11] MEDS: IBUPROFEN 600 MG TAB PO PRN ×2 (11:58→19:10)
[2021-04-11] MEDS: DICYCLOMINE HCL 20 MG TAB PO PRN (11:58)
[2021-04-11] MEDS: ADVANCED PROBIOTIC 1250 MG CAPSULE PO SCH (14:30)
[2021-04-11] MEDS: ALUMINUM/MAGNESIUM SUSP 30 ML UDC PO PRN (14:31)
--- NOTE | 2021-04-11 14:34 | Psychiatric Progress Note ---
Date of Service April 11, 2021 Impression / Recommendations Impression The patient is a 45 year old with a history of BPAD, depression, anxiety, ADHD with multiple prior psychiatric hospitalizations who was admitted for mood lability and concern for mixed episode of bipolar disorder with possible emerging acute radha. Diagnostically consistent with likely mixed episode of BPAD, sleep is decreased so remains concern for potential radha but on exam today he does not present with any classic symptoms of radha rather depression, anxiety and likely contribution from substance withdrawal from recent kratum use. The patient is deemed unstable and requires psychiatric hospitalization for diagnostic clarification, safety and stabilization, medication management and development of further coping skills. 04/11/21: Remains anxious-likely multifactorial from substance use withdrawal as well as medication withdrawal and pain. Tolerating new medications well. If sleep issues persist could consider trazodone or mirtazapine (which he was taking before) in place of guanfacine but suspect likely due to withdrawal from recent kratum use. Left message for Sophie Muñoz at [place]. (1) Prostatitis: (2) Epididymitis: (3) Bipolar 1 disorder, mixed: (4) ADHD: (5) Generalized anxiety disorder with panic attacks: 04/11/21: Continue medications. Probiotic added to help with GI symptoms from doxycycline. 04/10/21: The patient was admitted to the [facility] ([facility]) on q15 min checks (behavioral with suicide precautions) for safety. The patient will participate in group, recreational, and milieu therapies and will be offered additional individual and family sessions as clinically appropriate. -Depakote ER 250mg qhs for mood stabilization -Ativan 1mg TID (prior to admission dose, verified in PDMP) for anxiety and panic attacks -Lexapro 5 mg qd for depression and anxiety -guanfacine ER 1 mg qHS for ADHD and off-label for anxiety -Hold Adderall XR -Symptomatic management for potential kratum withdrawal: dicyclomine 20mg q6h prn abdominal cramps, loperamide 2mg q6h prn diarrhea, ibuprofen 600 mg q6h prn pain -Nicotine replacement patch and gum -Continue prior to admission medications for pain management, doxycycline and flomax -Attempt to reach his outpatient psychiatric provider for coordination of care Inventory Assets Strengths: motivated seek treatment, has outpatient psychiatrist Needs: medication adjustments, additional coping skills, therapy Risk Factors Assessment Male: Yes : Yes Do You Have Access To A Gun?: No Health Problems: Yes Mental Health Diagnoses: Yes Substance Use Disorders: Yes Previous Attempt: No Family History of Suicide: No Previous Psychiatric Hospitalization: Yes Hopelessness: Yes Protective Factors Assessment Employed: No Stable Relationships: Yes Supportive Family: Yes Good Rapport with Provider: Yes Interval History Identifying Information PEPITO PAPPAS is a 45-year-old man who currently lives in with his mother, has a history of BPAD, ADHD, depression, anxiety, possible schizophrenia and recent polysubstance use, and was admitted on 04/09/21 22:52 on a 201 voluntary commitment for mood lability including concern for radha, delusions and worsening anxiety. Chief Complaint "I'm really anxious today but I think it's my brain adapting to all the changes and everything I put in my system recently". Review of Systems Sleep Information Total Hours of Sleep: 8 Meal Information Percent Meal Consumed - Breakfast: 100 Percent Meal Consumed - Lunch: 100 Percent Meal Consumed - Dinner: 100 Subjective Subjective Patient was seen & assessed and interval progress reviewed with treatment team nursing and social work. Today he reports intermittent, restless sleep last night and ongoing periods of high anxiety with depressed mood. No SI. He's trying to use distraction and rest to cope with anxiety. He hasn't noticed any medication side effects so far. He continues to have some intermittent pain from the prostatis and notes his stomach feels "raw" from the doxycycline. Discussed having him eat yogurt with some meals every day and starting probiotic which he 's agreeable to. Physical Exam Psychiatric Orientation: alert Apperance: appropriately dressed and appropriately groomed Eye Contact: good eye contact Motor Behavior: no abnormal motor movements Speech: normal rate/rhythm/volume of speech Affect: + anxious affect Mood: + depressed mood and + anxious mood Thought Process: goal directed thought process Thought Content: reality based without delusions Suicidal Thoughts: denies suicidal thoughts Homicidal Thoughts: denies homicidal thoughts Hallucinations: no auditory hallucinations and no visual hallucinations Cognition: recent memory grossly intact, remote memory grossly intact, attention grossly intact and language grossly intact Estimated Intelligence: consistent with education level Insight: + fair insight Judgement: + fair judgement Vital Signs (Past 24 Hours) Last Vital Signs Temp 36.8 C 04/11/21 06:00 Pulse 85 04/11/21 06:08 Resp 16 04/11/21 06:00 BP 118/78 04/11/21 06:08 Pulse Ox 98 04/09/21 23:00 Results & Data ([facility]) Current Inpatient Medications Current Inpatient Medications: Current Inpatient Medications Acetaminophen (Acetaminophen 325 Mg Tab) 650 mg PO Q4H PRN PRN Reason: Headache or Minor Fever Stop: 05/09/21 22:51 Last Admin: 04/10/21 20:23 Dose: 650 mg Documented by: Al Hydrox/Mg Hydrox/Simethicone (Aluminum/Magnesium Susp 30 Ml Udc) 30 ml PO Q4H PRN PRN Reason: GI Upset Stop: 05/09/21 22:51 Last Admin: 04/10/21 17:33 Dose: 30 ml Documented by: Bismuth Subsalicylate (Bismuth Subsalicylate Liqd 236 Ml) 15 ml PO PRN PRN PRN Reason: Loose Stool Stop: 05/09/21 22:51 Dicyclomine HCl (Dicyclomine Hcl 20 Mg Tab) 20 mg PO Q6H PRN PRN Reason: Cramping Stop: 05/10/21 16:14 Last Admin: 04/11/21 11:58 Dose: 20 mg Documented by: Divalproex Sodium (Divalproex Extended Release 250 Mg Tabcr) 250 mg PO [facility] Stop: 05/10/21 21:59 Last Admin: 04/10/21 20:22 Dose: 250 mg Documented by: Doxycycline Hyclate (Doxycycline Hyclate 100 Mg Cap) 100 mg PO BID [facility] Stop: 04/25/21 21:01 Last Admin: 04/11/21 08:51 Dose: 100 mg Documented by: Escitalopram Oxalate (Escitalopram Oxalate 10 Mg Tab) 5 mg PO QAM [facility] Stop: 05/11/21 08:59 Last Admin: 04/11/21 08:51 Dose: 5 mg Documented by: Guanfacine HCl (Guanfacine Hcl 1 Mg Ertab) 1 mg PO HS [facility] Stop: 05/10/21 21:59 Last Admin: 04/10/21 20:22 Dose: 1 mg Documented by: Hydroxyzine HCl (Hydroxyzine Hcl 25 Mg Tab) 25 mg PO TID [facility] Stop: 05/10/21 08:59 Last Admin: 04/11/21 11:54 Dose: 25 mg Documented by: Ibuprofen (Ibuprofen 600 Mg Tab) 600 mg PO Q6H PRN PRN Reason: pain Stop: 05/10/21 16:16 Last Admin: 04/11/21 11:58 Dose: 600 mg Documented by: Lactobacillus Acidoph/Casei/Rhamnos (Advanced Probiotic 1250 Mg Capsule) 2 cap PO DAILY [facility] Stop: 05/11/21 11:29 Loperamide HCl (Loperamide Hcl 2 Mg Cap) 2 mg PO Q6H PRN PRN Reason: Diarrhea Stop: 05/10/21 16:15 Lorazepam (Lorazepam 1 Mg Tab) 1 mg PO TID [facility] Stop: 04/20/21 20:59 Last Admin: 04/11/21 08:52 Dose: 1 mg Documented by: Magnesium Hydroxide (Magnesium Hydroxide Susp 30 Ml Udc) 30 ml PO DAILY PRN PRN Reason: Constipation Stop: 05/09/21 22:51 Meloxicam (Meloxicam 7.5 Mg Tab) 7.5 mg PO DAILY [facility] Stop: 05/11/21 08:59 Last Admin: 04/11/21 08:52 Dose: 7.5 mg Documented by: Miscellaneous (Remove Nicoderm Patch) 1 ea N/A QAM [facility] Stop: 05/11/21 08:59 Last Admin: 04/11/21 08:57 Dose: 1 ea Documented by: Multivitamins (Multivitamin Tab) 1 tab PO QAM [facility] Stop: 05/12/21 08:59 Nicotine (Nicotine 21 Mg/24 Hr Tdsy) 21 mg TD QAM [facility] Stop: 05/10/21 08:59 Last Admin: 04/11/21 08:52 Dose: 21 mg Documented by: Nicotine Polacrilex (Nicotine Polacrilex 2 Mg Gum) 1 piece MT PRN PRN PRN Reason: Nicotine Replacement Stop: 05/09/21 23:47 Last Admin: 04/11/21 09:15 Dose: 1 piece Documented by: Sodium Chloride (Sodium Chloride 0.65% Na Soln 45 Ml ([place])) 1 - 2 sprays NA PRN PRN PRN Reason: Nasal Dryness/Congestion Stop: 05/09/21 22:51 Tamsulosin HCl (Tamsulosin Hcl 0.4 Mg Cap) 0.4 mg PO DAILY [facility] Stop: 05/10/21 11:44 Last Admin: 04/11/21 08:52 Dose: 0.4 mg Documented by: Mental Health & Subst Abuse Tx Therapist Name of Therapist: none currently Clerk Cashier Name of Clerk Cashier: none currently Post Discharge Appointments Primary Care Physician Name Of Family Doctor: Gali Choudhary
[2021-04-11] MEDS: ACETAMINOPHEN 325 MG TAB PO PRN ×2 (15:19→21:38)
[2021-04-11] MEDS ORDERED: LORazepam 1 MG TAB PO STA (15:50)
[2021-04-11] MEDS: DIVALPROEX EXTENDED RELEASE 250 MG TABCR PO SCH (20:59)
[2021-04-12] MEDS: ESCITALOPRAM OXALATE 10 MG TAB PO SCH (09:11)
[2021-04-12] MEDS: DOXYCYCLINE HYCLATE 100 MG CAP PO SCH ×2 (09:11→20:01)
[2021-04-12] MEDS: MELOXICAM 7.5 MG TAB PO SCH (09:12)
[2021-04-12] MEDS: ADVANCED PROBIOTIC 1250 MG CAPSULE PO SCH (09:12)
[2021-04-12] MEDS: hydrOXYzine HCl 25 MG TAB PO SCH ×3 (09:12→20:02)
[2021-04-12] MEDS: MULTIVITAMIN TAB PO SCH (09:13)
[2021-04-12] MEDS: NICOTINE 21 MG/24 HR TDSY TD SCH (09:13)
[2021-04-12] MEDS: TAMSULOSIN HCL 0.4 MG CAP PO SCH (09:13)
[2021-04-12] MEDS: LORazepam 1 MG TAB PO SCH ×3 (09:14→16:58)
[2021-04-12] MEDS: NICOTINE POLACRILEX 2 MG GUM MT PRN ×4 (11:04→20:32)
[2021-04-12] MEDS: ALUMINUM/MAGNESIUM SUSP 30 ML UDC PO PRN (15:28)
[2021-04-12] MEDS: IBUPROFEN 600 MG TAB PO PRN (15:28)
--- NOTE | 2021-04-12 15:35 | Psychiatric Progress Note ---
Date of Service April 12, 2021 Impression / Recommendations Impression The patient is a 45 year old with a history of BPAD, depression, anxiety, ADHD with multiple prior psychiatric hospitalizations who was admitted for mood lability and concern for mixed episode of bipolar disorder with possible emerging acute radha. Diagnostically consistent with likely mixed episode of BPAD, sleep is decreased so remains concern for potential radha but on exam today he does not present with any classic symptoms of radha rather depression, anxiety and likely contribution from substance withdrawal from recent kratum use. The patient is deemed unstable and requires psychiatric hospitalization for diagnostic clarification, safety and stabilization, medication management and development of further coping skills. 04/12/21: Anxiety is improving with no prn medications needed today-likely mul tifactorial from substance use withdrawal as well as medication withdrawal and pain. Tolerating new medications well. Since sleep issues are persisting discussed stopping guanfacine and starting trazodone which he's found helpful in the past. He doesn't want to increase the dose of Depakote yet. He is interested in increasing the dose of lexapro starting tomorrow to further target depressive symptoms. Can consider restarting Adderall XR in 1-2 days if anxiety remains well controlled. He consents to all medication changes and reviewed risks/benefits/alteratives. Reviewed outpatient records from [place] and confirmed med rec was correct. (1) Prostatitis: (2) Epididymitis: (3) Bipolar 1 disorder, mixed: (4) ADHD: (5) Generalized anxiety disorder with panic attacks: 04/12/21: Reviewed outpt records from [place]. Increase lexapro to 10mg qAM. Continue with depakote at current dose (will wait on level until another dose increase occurs). D/c guanfacine and start trazodone 50mg qhs instead for insomnia. Continue holding on Adderall XR. 04/11/21: Continue medications. Probiotic added to help with GI symptoms from doxycycline. 04/10/21: The patient was admitted to the [facility] ([facility]) on q15 min checks (behavioral with suicide precautions) for safety. The patient will participate in group, recreational, and milieu therapies and will be offered additional individual and family sessions as clinically appropriate. -Depakote ER 250mg qhs for mood stabilization -Ativan 1mg TID (prior to admission dose, verified in PDMP) for anxiety and panic attacks -Lexapro 5 mg qd for depression and anxiety -guanfacine ER 1 mg qHS for ADHD and off-label for anxiety -Hold Adderall XR -Symptomatic management for potential kratum withdrawal: dicyclomine 20mg q6h prn abdominal cramps, loperamide 2mg q6h prn diarrhea, ibuprofen 600 mg q6h prn pain -Nicotine replacement patch and gum -Continue prior to admission medications for pain management, doxycycline and flomax -Attempt to reach his outpatient psychiatric provider for coordination of care Inventory Assets Strengths: motivated seek treatment, has outpatient psychiatrist Needs: medication adjustments, additional coping skills, therapy Risk Factors Assessment Male: Yes : Yes Do You Have Access To A Gun?: No Health Problems: Yes Mental Health Diagnoses: Yes Substance Use Disorders: Yes Previous Attempt: No Family History of Suicide: No Previous Psychiatric Hospitalization: Yes Hopelessness: Yes Protective Factors Assessment Employed: No Stable Relationships: Yes Supportive Family: Yes Good Rapport with Provider: Yes Interval History Identifying Information PEPITO PAPPAS is a 45-year-old man who currently lives in with his mother, has a history of BPAD, ADHD, depression, anxiety, possible schizophrenia and recent polysubstance use, and was admitted on 04/09/21 22:52 on a 201 voluntary commitment for mood lability including concern for radha, delusions and worsening anxiety. Chief Complaint "I'm having some stomach pain". Review of Systems Sleep Information Total Hours of Sleep: 7.25 Sleep Comments: pt on q-15 minute check Meal Information Percent Meal Consumed - Breakfast: 100 Percent Meal Consumed - Lunch: 100 Percent Meal Consumed - Dinner: 100 Subjective Subjective Patient was seen & assessed and interval progress reviewed with treatment team nursing and social work. Has not needed any prn medications today. Feels his anx iety has improved a lot since last night and feels better managed today. Still having ADHD symptoms of distractibility, loss of focus which he feels become more prominent as anxiety improves. He continues to feel "sad and depressed". No medication side effects. Guanfacine isn't helping with sleep which remains restless. Physical Exam Psychiatric Orientation: alert Apperance: appropriately dressed and appropriately groomed Eye Contact: good eye contact Motor Behavior: no abnormal motor movements Speech: normal rate/rhythm/volume of speech Affect: + depressed affect Mood: + depressed mood and + anxious mood Thought Process: goal directed thought process Thought Content: reality based without delusions Suicidal Thoughts: denies suicidal thoughts Homicidal Thoughts: denies homicidal thoughts Hallucinations: no auditory hallucinations and no visual hallucinations Cognition: recent memory grossly intact, remote memory grossly intact, attention grossly intact and language grossly intact Estimated Intelligence: consistent with education level Insight: + fair insight Judgement: + fair judgement Vital Signs (Past 24 Hours) Last Vital Signs Temp 36.7 C 04/12/21 06:23 Pulse 83 04/12/21 06:24 Resp 16 04/12/21 06:23 BP 113/79 04/12/21 06:24 Pulse Ox 98 04/09/21 23:00 Results & Data ([facility]) Current Inpatient Medications Current Inpatient Medications: Current Inpatient Medications Acetaminophen (Acetaminophen 325 Mg Tab) 650 mg PO Q4H PRN PRN Reason: Headache or Minor Fever Stop: 05/09/21 22:51 Last Admin: 04/11/21 21:38 Dose: 650 mg Documented by: Al Hydrox/Mg Hydrox/Simethicone (Aluminum/Magnesium Susp 30 Ml Udc) 30 ml PO Q4H PRN PRN Reason: GI Upset Stop: 05/09/21 22:51 Last Admin: 04/11/21 14:31 Dose: 30 ml Documented by: Bismuth Subsalicylate (Bismuth Subsalicylate Liqd 236 Ml) 15 ml PO PRN PRN PRN Reason: Loose Stool Stop: 05/09/21 22:51 Dicyclomine HCl (Dicyclomine Hcl 20 Mg Tab) 20 mg PO Q6H PRN PRN Reason: Cramping Stop: 05/10/21 16:14 Last Admin: 04/11/21 11:58 Dose: 20 mg Documented by: Divalproex Sodium (Divalproex Extended Release 250 Mg Tabcr) 250 mg PO HS [facility] Stop: 05/10/21 21:59 Last Admin: 04/11/21 20:59 Dose: 250 mg Documented by: Doxycycline Hyclate (Doxycycline Hyclate 100 Mg Cap) 100 mg PO BID [facility] Stop: 04/25/21 21:01 Last Admin: 04/12/21 09:11 Dose: 100 mg Documented by: Escitalopram Oxalate (Escitalopram Oxalate 10 Mg Tab) 5 mg PO QAM [facility] Stop: 05/11/21 08:59 Last Admin: 04/12/21 09:11 Dose: 5 mg Documented by: Guanfacine HCl (Guanfacine Hcl 1 Mg Ertab) 1 mg PO HS [facility] Stop: 05/10/21 21:59 Last Admin: 04/11/21 20:59 Dose: 1 mg Documented by: Hydroxyzine HCl (Hydroxyzine Hcl 25 Mg Tab) 25 mg PO TID [facility] Stop: 05/10/21 08:59 Last Admin: 04/12/21 14:04 Dose: 25 mg Documented by: Ibuprofen (Ibuprofen 600 Mg Tab) 600 mg PO Q6H PRN PRN Reason: pain Stop: 05/10/21 16:16 Last Admin: 04/11/21 19:10 Dose: 600 mg Documented by: Loperamide HCl (Loperamide Hcl 2 Mg Cap) 2 mg PO Q6H PRN PRN Reason: Diarrhea Stop: 05/10/21 16:15 Lorazepam (Lorazepam 1 Mg Tab) 1 mg PO DAILY@0900,1200,1700 [facility] Stop: 05/11/21 16:59 Last Admin: 04/12/21 12:00 Dose: 1 mg Documented by: Magnesium Hydroxide (Magnesium Hydroxide Susp 30 Ml Udc) 30 ml PO DAILY PRN PRN Reason: Constipation Stop: 05/09/21 22:51 Meloxicam (Meloxicam 7.5 Mg Tab) 7.5 mg PO DAILY [facility] Stop: 05/11/21 08:59 Last Admin: 04/12/21 09:12 Dose: 7.5 mg Documented by: Miscellaneous (Remove Nicoderm Patch) 1 ea N/A [facility] Stop: 05/11/21 08:59 Last Admin: 04/12/21 09:13 Dose: 1 ea Documented by: [facility]ivitamins ([facility]amin Tab) [facility] Stop: 05/12/21 08:59 Last Admin: 04/12/21 09:13 Dose: 1 tab Documented by: Nicotine (Nicotine 21 Mg/24 Hr Tdsy) 21 mg TD QAM [facility] Stop: 05/10/21 08:59 Last Admin: 04/12/21 09:13 Dose: 21 mg Documented by: Nicotine Polacrilex (Nicotine Polacrilex 2 Mg Gum) 1 piece MT PRN PRN PRN Reason: Nicotine Replacement Stop: 05/09/21 23:47 Last Admin: 04/12/21 14:33 Dose: 1 piece Documented by: Sodium Chloride (Sodium Chloride 0.65% Na Soln 45 Ml ([place])) 1 - 2 sprays NA PRN PRN PRN Reason: Nasal Dryness/Congestion Stop: 05/09/21 22:51 Tamsulosin HCl (Tamsulosin Hcl 0.4 Mg Cap) 0.4 mg PO DAILY [facility] Stop: 05/10/21 11:44 Last Admin: 04/12/21 09:13 Dose: 0.4 mg Documented by: Mental Health & Subst Abuse Tx Psychiatrist Name of Psychiatrist: Jaki Gillis Psychiatrist's Date of Appointment with Psychiatrist: 04/26/21 Time of Appointment with Psychiatrist: 10:20am Psychiatric Appointment Comment: [address] [place], [place] Therapist Name of Therapist: Agata Candelario Therapist's Date of Therapist Appointment: 04/16/21 Time of Therapist Appointment: 12:30 PM Therapy Appointment Comment: [address] [place], [place] Quality Assurance Name of Quality Assurance: none currently Post Discharge Appointments Primary Care Physician Name Of Family Doctor: Benny Resendiz Primary Care Date of Appointment with PCP: 04/18/21 Time of Appointment with PCP: 10:05 AM Provider Appointment Comment: [address] [place] [address] Contact Information Discharge Discharge [address]: [address] [place] [address] [place], [place] [id number]
[2021-04-12 16:01] LABS: Amphetamine Urine, Confirm 1650 ng/mL (<250); Marijuana Quant, GCMS Urine 87 ng/mL (<5); Methamphetamine, Ur Confirm NEGATIVE ng/mL (<250)
[2021-04-12] MEDS: traZODone HCL 50 MG TAB PO SCH (21:48)
[2021-04-12] MEDS: DIVALPROEX EXTENDED RELEASE 250 MG TABCR PO SCH (21:48)
[2021-04-13] MEDS: TAMSULOSIN HCL 0.4 MG CAP PO SCH (09:23)
[2021-04-13] MEDS: MELOXICAM 7.5 MG TAB PO SCH (09:23)
[2021-04-13] MEDS: MULTIVITAMIN TAB PO SCH (09:24)
[2021-04-13] MEDS: DOXYCYCLINE HYCLATE 100 MG CAP PO SCH ×2 (09:24→20:18)
[2021-04-13] MEDS: ADVANCED PROBIOTIC 1250 MG CAPSULE PO SCH (09:24)
[2021-04-13] MEDS: ESCITALOPRAM OXALATE 10 MG TAB PO SCH (09:24)
[2021-04-13] MEDS: hydrOXYzine HCl 25 MG TAB PO SCH ×4 (09:24→20:18)
[2021-04-13] MEDS: LORazepam 1 MG TAB PO SCH ×3 (09:25→16:54)
[2021-04-13] MEDS: NICOTINE 21 MG/24 HR TDSY TD SCH (09:25)
[2021-04-13] MEDS: NICOTINE POLACRILEX 2 MG GUM MT PRN ×5 (09:30→19:45)
--- NOTE | 2021-04-13 10:01 | Psychiatric Progress Note ---
Date of Service April 13, 2021 Impression / Recommendations Impression The patient is a 45 year old with a history of BPAD, depression, anxiety, ADHD with multiple prior psychiatric hospitalizations who was admitted for mood lability and concern for mixed episode of bipolar disorder with possible emerging acute radha. Diagnostically consistent with likely mixed episode of BPAD, sleep is decreased so remains concern for potential radha but on exam today he does not present with any classic symptoms of radha rather depression, anxiety and likely contribution from substance withdrawal from recent kratum use. The patient is deemed unstable and requires psychiatric hospitalization for diagnostic clarification, safety and stabilization, medication management and development of further coping skills. As per Dr. Martinez in italics, care reviewed. 04/13/21: improving (1) Prostatitis: (2) Epididymitis: (3) Bipolar 1 disorder, mixed: (4) ADHD: (5) Generalized anxiety disorder with panic attacks: 04/13/21: no evidence of withdrawal at this time. resume Adderall XR at a lower dose 20 mg as trial. 04/12/21: Reviewed outpt records from [facility]. Increase lexapro to 10mg qAM. Continue with depakote at current dose (will wait on level until another dose increase occurs). D/c guanfacine and start trazodone 50mg qhs instead for insomnia. Continue holding on Adderall XR. 04/11/21: Continue medications. Probiotic added to help with GI symptoms from doxycycline. 04/10/21: The patient was admitted to the [facility] ([facility] mental health unit) on q15 min checks (behavioral with suicide precautions) for safety. The patient will participate in group, recreational, and milieu therapies and will be offered additional individual and family sessions as clinically appropriate. -Depakote ER 250mg qhs for mood stabilization -Ativan 1mg TID (prior to admission dose, verified in PDMP) for anxiety and panic attacks -Lexapro 5 mg qd for depression and anxiety -guanfacine ER 1 mg qHS for ADHD and off-label for anxiety -Hold Adderall XR -Symptomatic management for potential kratum withdrawal: dicyclomine 20mg q6h prn abdominal cramps, loperamide 2mg q6h prn diarrhea, ibuprofen 600 mg q6h prn pain -Nicotine replacement patch and gum -Continue prior to admission medications for pain management, doxycycline and flomax -Attempt to reach his outpatient psychiatric provider for coordination of care Inventory Assets Strengths: motivated seek treatment, has outpatient psychiatrist Needs: medication adjustments, additional coping skills, therapy Risk Factors Assessment Male: Yes : Yes Do You Have Access To A Gun?: No Health Problems: Yes Mental Health Diagnoses: Yes Substance Use Disorders: Yes Previous Attempt: No Family History of Suicide: No Previous Psychiatric Hospitalization: Yes Hopelessness: Yes Protective Factors Assessment Employed: No Stable Relationships: Yes Supportive Family: Yes Good Rapport with Provider: Yes Interval History Identifying Information PEPITO PAPPAS is a 45-year-old man who currently lives in with his mother, has a history of BPAD, ADHD, depression, anxiety, possible schizophrenia and recent polysubstance use, and was admitted on 04/09/21 22:52 on a 201 voluntary commitment for mood lability including concern for radha, delusions and worsening anxiety. Chief Complaint "That Kratom really messed me up, I won't do that again". Review of Systems Sleep Information Total Hours of Sleep: 5.5 Sleep Comments: pt given trazodone per rn. pt on q-15 minute checks Meal Information Percent Meal Consumed - Breakfast: 100 Percent Meal Consumed - Lunch: 100 Percent Meal Consumed - Dinner: 100 Subjective Subjective Patient was seen & assessed and interval progress reviewed with nursing and social work. Reports a long hx of GI issues prior to starting doxycycline. Has used MJ/edibles in the past and a friend recommended Kratom and he felt it would be safe as OTC. He took for a few days then stopped abruptly resulting in a withdrawal during which he couldn't tolerate his prescription medications and then "everything fell apart from there". Much improved yesterday with less reliance on prns. Reported main concern at this time is his ADHD symptoms and how life changing Adderall has been as he would like to transition off of disability when he is done caring for his mom. Physical Exam Psychiatric Orientation: alert Apperance: appropriately dressed and appropriately groomed Eye Contact: good eye contact Motor Behavior: no abnormal motor movements Speech: normal rate/rhythm/volume of speech Affect: euthymic affect Mood: + depressed mood Thought Process: goal directed thought process Thought Content: reality based without delusions Suicidal Thoughts: denies suicidal thoughts Homicidal Thoughts: denies homicidal thoughts Hallucinations: no auditory hallucinations and no visual hallucinations Cognition: recent memory grossly intact, remote memory grossly intact, attention grossly intact and language grossly intact Estimated Intelligence: consistent with education level Insight: + fair insight Judgement: + fair judgement Vital Signs (Past 24 Hours) Last Vital Signs Temp 36.8 C 04/13/21 06:38 Pulse 80 04/13/21 06:39 Resp 16 04/13/21 06:38 BP 136/87 04/13/21 06:39 Pulse Ox 98 04/09/21 23:00 Results & Data ([facility]) Laboratory Results Laboratory Results - last 24 hr 04/09/21 17:12 U Amphetamines Confirm 1650 H U Methamphetamin Confrm NEGATIVE U Marijuana THC Carboxy 87 H Drug Screen Comment SEE NOTE Current Inpatient Medications Current Inpatient Medications: Current Inpatient Medications Acetaminophen (Acetaminophen 325 Mg Tab) 650 mg PO Q4H PRN PRN Reason: Headache or Minor Fever Stop: 05/09/21 22:51 Last Admin: 04/11/21 21:38 Dose: 650 mg Documented by: Al Hydrox/Mg Hydrox/Simethicone (Aluminum/Magnesium Susp 30 Ml Udc) 30 ml PO Q4H PRN PRN Reason: GI Upset Stop: 05/09/21 22:51 Last Admin: 04/12/21 15:28 Dose: 30 ml Documented by: Amphetamine/Dextroamphetamine (Amphetamine Asp/Sulf/Dextramph Er 20 Mg Cap) 20 mg PO QAM [facility] Stop: 04/27/21 09:54 Bismuth Subsalicylate (Bismuth Subsalicylate Liqd 236 Ml) 15 ml PO PRN PRN PRN Reason: Loose Stool Stop: 05/09/21 22:51 Dicyclomine HCl (Dicyclomine Hcl 20 Mg Tab) 20 mg PO Q6H PRN PRN Reason: Cramping Stop: 05/10/21 16:14 Last Admin: 04/11/21 11:58 Dose: 20 mg Documented by: Divalproex Sodium (Divalproex Extended Release 250 Mg Tabcr) 250 mg PO HS [facility] Stop: 05/10/21 21:59 Last Admin: 04/12/21 21:48 Dose: 250 mg Documented by: Doxycycline Hyclate (Doxycycline Hyclate 100 Mg Cap) 100 mg PO BID [facility] Stop: 04/25/21 21:01 Last Admin: 04/13/21 09:24 Dose: 100 mg Documented by: Escitalopram Oxalate (Escitalopram Oxalate 10 Mg Tab) 10 mg PO QAM [facility] Stop: 05/13/21 08:59 Last Admin: 04/13/21 09:24 Dose: 10 mg Documented by: Hydroxyzine HCl (Hydroxyzine Hcl 25 Mg Tab) 25 mg PO TID [facility] Stop: 05/10/21 08:59 Last Admin: 04/13/21 09:24 Dose: 25 mg Documented by: Ibuprofen (Ibuprofen 600 Mg Tab) 600 mg PO Q6H PRN PRN Reason: pain Stop: 05/10/21 16:16 Last Admin: 04/12/21 15:28 Dose: 600 mg Documented by: Loperamide HCl (Loperamide Hcl 2 Mg Cap) 2 mg PO Q6H PRN PRN Reason: Diarrhea Stop: 05/10/21 16:15 Lorazepam (Lorazepam 1 Mg Tab) 1 mg PO DAILY@0900,1200,1700 [facility] Stop: 05/11/21 16:59 Last Admin: 04/13/21 09:25 Dose: 1 mg Documented by: Magnesium Hydroxide (Magnesium Hydroxide Susp 30 Ml Udc) 30 ml PO DAILY PRN PRN Reason: Constipation Stop: 05/09/21 22:51 Meloxicam (Meloxicam 7.5 Mg Tab) 7.5 mg PO DAILY [facility] Stop: 05/11/21 08:59 Last Admin: 04/13/21 09:23 Dose: 7.5 mg Documented by: Miscellaneous (Remove Nicoderm Patch) [facility] [place]: 05/11/21 08:59 Last Admin: 04/13/21 09:25 Dose: 1 ea Documented by: Multivitamins (Multivitamin Tab) [facility] [place]: 05/12/21 08:59 Last Admin: 04/13/21 09:24 Dose: 1 tab Documented by: Nicotine (Nicotine 21 Mg/24 Hr Tdsy) 21 mg TD [facility] Stop: 05/10/21 08:59 Last Admin: 04/13/21 09:25 Dose: 21 mg Documented by: Nicotine Polacrilex (Nicotine Polacrilex 2 Mg Gum) 1 piece MT PRN PRN PRN Reason: Nicotine Replacement Stop: 05/09/21 23:47 Last Admin: 04/13/21 09:30 Dose: 1 piece Documented by: Sodium Chloride (Sodium Chloride 0.65% Na Soln 45 Ml (Treutlen)) 1 - 2 sprays NA PRN PRN PRN Reason: Nasal Dryness/Congestion Stop: 05/09/21 22:51 Tamsulosin HCl (Tamsulosin Hcl 0.4 Mg Cap) 0.4 mg PO DAILY [facility] Stop: 05/10/21 11:44 Last Admin: 04/13/21 09:23 Dose: 0.4 mg Documented by: Trazodone HCl (Trazodone Hcl 50 Mg Tab) 50 mg PO HS [facility] Stop: 05/12/21 21:59 Last Admin: 04/12/21 21:48 Dose: 50 mg Documented by: Mental Health & Subst Abuse Tx Psychiatrist Name of Psychiatrist: Jaki Gillis Psychiatrist's Date of Appointment with Psychiatrist: 04/26/21 Time of Appointment with Psychiatrist: 10:20am Psychiatric Appointment Comment: [address] [place], [place] Therapist Name of Therapist: Agata Candelario Therapist's Date of Therapist Appointment: 04/16/21 Time of Therapist Appointment: 12:30 PM Therapy Appointment Comment: [address] [place], [place] Straightedge Man Name of Straightedge Man: none currently Post Discharge Appointments Primary Care Physician Name Of Family Doctor: Benny Resendiz [facility] Date of Appointment with PCP: 04/18/21 Time of Appointment with PCP: 10:05 AM Provider Appointment Comment: [address] [place] [address] Contact Information Discharge Discharge Address: [address] [place] [address] [place], [place] [id number]
[2021-04-13] MEDS: DEXTROAMPHETAMINE/AMPHETAMINE ER 10 MG CAP PO SCH (10:27)
[2021-04-13] MEDS: ALUMINUM/MAGNESIUM SUSP 30 ML UDC PO PRN ×2 (11:33→15:40)
[2021-04-13] MEDS: traZODone HCL 50 MG TAB PO SCH (20:18)
[2021-04-13] MEDS: DIVALPROEX EXTENDED RELEASE 250 MG TABCR PO SCH (20:18)
[2021-04-14] MEDS: DOXYCYCLINE HYCLATE 100 MG CAP PO SCH (08:32)
[2021-04-14] MEDS: DEXTROAMPHETAMINE/AMPHETAMINE ER 10 MG CAP PO SCH (08:32)
[2021-04-14] MEDS: MULTIVITAMIN TAB PO SCH (08:33)
[2021-04-14] MEDS: MELOXICAM 7.5 MG TAB PO SCH (08:33)
[2021-04-14] MEDS: hydrOXYzine HCl 25 MG TAB PO SCH (08:34)
[2021-04-14] MEDS: TAMSULOSIN HCL 0.4 MG CAP PO SCH (08:34)
[2021-04-14] MEDS: ADVANCED PROBIOTIC 1250 MG CAPSULE PO SCH (08:34)
[2021-04-14] MEDS: ESCITALOPRAM OXALATE 10 MG TAB PO SCH (08:34)
[2021-04-14] MEDS: NICOTINE 21 MG/24 HR TDSY TD SCH (08:35)
[2021-04-14] MEDS: LORazepam 1 MG TAB PO SCH ×2 (08:37→12:26)
[2021-04-14] MEDS: NICOTINE POLACRILEX 2 MG GUM MT PRN (08:38)
[2021-04-14] MEDS: ALUMINUM/MAGNESIUM SUSP 30 ML UDC PO PRN (09:17)
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
[2021-04-14] MEDS ORDERED: AMPHETAMINE ASP/SULF/DEXTRAMPH 20 MG TAB PO ONE (12:00)
== END 2021-04-14 13:00 | disposition home or self-care (01) | DRG 885 ==
LOC: ED 15:00 → 3S 22:52 → SUATTDRO 22:52 → 3S 23:13
DX: F31.60 Bipolar disorder, current episode mixed, unspecified; F41.0 Panic disorder [episodic paroxysmal anxiety]; F17.210 Nicotine dependence, cigarettes, uncomplicated; F41.1 Generalized anxiety disorder; N45.1 Epididymitis; N41.9 Inflammatory disease of prostate, unspecified; Z91.14 Patient's other noncompliance with medication regimen; F90.9 Attention-deficit hyperactivity disorder, unspecified type